=== PATIENT | female | born 1950 | race Two or more races ===

== ENCOUNTER 2020-01-25 21:43 | Inpatient (IN) | payer MEDICARE, MEDICAID ==
[~2020-01-25] VITALS: Ht 160 cm; Wt 55.3 kg
[2020-01-25 22:41] LABS: BASOPHILS % 0.7 % (0.0-2.0); HEMATOCRIT. 38.4 % (36.0-48.0); HEMOGLOBIN. 12.7 g/dL (12.0-16.0); LYMPHOCYTES % 14.7 % (20.0-50.0); MEAN CORPUSCULAR HEMOGLOBIN 32.6 pg (28.0-32.0); MEAN CORPUSCULAR VOLUME 98.7 fL (81.0-99.0); MEAN PLATELET VOLUME 9.4 fl (7.4-10.4); MONOCYTES % 6.7 % (2.0-8.0); NEUTROPHILS % 73.9 % (40.0-76.0); PLATELET 168 x1000/uL (130-400); RED BLOOD CELL COUNT 3.89 mill/uL (4.2-5.4); RED CELL DISTRIBUTION WIDTH 19.4 % (11.6-14.6)
[2020-01-25 22:46] LABS: CHLORIDE 96 mEq/L (98-107)
[2020-01-25 22:48] LABS: PROTHROMBIN TIME 10.9 sec (9.6-11.0)
[2020-01-25] MEDS ORDERED: ACETAMINOPHEN 325MG TABLET PO ONE ×2 (23:15→23:45)
[2020-01-25] MEDS ORDERED: MECLIZINE 25MG TABLET PO ONE (23:15)
[2020-01-25 23:18] LABS: PARTIAL THROMBOPLASTIN TIME 21.5 sec (23.4-31.0)
[2020-01-26] VITALS (16 sets, daily range): BP systolic 80–164; BP diastolic 40–67
[2020-01-26] MEDS ORDERED: DEXTROSE 50% WATER 50ML SYRINGE IV ONE
[2020-01-26] MEDS ORDERED: INSULIN REGULAR (HUMULIN R) UD 100 UNITS/ML SYR IV ONE
[2020-01-26] MEDS ORDERED: VANCOMYCIN 1 G PREMIX 200 ML IV SCH
[2020-01-26] MEDS ORDERED: CALCIUM GLUCONATE 100MG/ML 10ML VIAL IV ONE
[2020-01-26] MEDS ORDERED: PIPERACILLIN/TAZ 2.25G PREMIX 50 ML IV ONE
[2020-01-26] MEDS ORDERED: LORAZEPAM 2MG/ML CPJ IV PRN (00:45)
[2020-01-26] MEDS ORDERED: INSULIN REGULAR (HUMULIN R) 300UNITS/3ML IV SCH (00:45)
[2020-01-26] MEDS ORDERED: ACETAMINOPHEN 325MG TABLET PO PRN (00:45)
[2020-01-26] MEDS ORDERED: IPRATROPIUM/ALBUTEROL 0.5-3(2.5)MG/3ML NEB HHN PRN (00:45)
[2020-01-26] MEDS ORDERED: ONDANSETRON HCL 4MG/2ML INJ IV PRN (00:45)
[2020-01-26] MEDS ORDERED: DOCUSATE SODIUM 100MG CAPSULE PO PRN (00:45)
[2020-01-26] MEDS ORDERED: HYDRALAZINE 20MG/ML VIAL IV PRN (00:45)
[2020-01-26] MEDS ORDERED: DEXTROSE 50% WATER 50ML SYRINGE IV PRN (00:45)
[2020-01-26] MEDS ORDERED: MAGNESIUM/ALUMINUM HYDROXIDE/SIMETHICONE 30ML UDC PO PRN (00:45)
[2020-01-26] MEDS ORDERED: DIPHENHYDRAMINE 50MG/ML VIAL IV PRN (00:45)
[2020-01-26] MEDS ORDERED: GUAIFENESIN 200MG/10ML SUGAR FREE UDC PO PRN (00:45)
[2020-01-26] MEDS ORDERED: MORPHINE SULFATE 2 MG/ML CPJ (NOT FOR IM USE) IV PRN (00:45)
[2020-01-26] MEDS ORDERED: CALCIUM GLUCONATE 1,000 MG in DEXT 5% WATER 100 ML IV SCH (01:00)
[2020-01-26 05:02] LABS: CREATINE KINASE 39 IU/L (26-192)
[2020-01-26 05:04] LABS: CREATINE KINASE MB FRACTION < 1.0 ng/mL (0.5-3.6)
[2020-01-26] MEDS: SODIUM CHLORIDE 0.9% INJ 3ML FLUSH IVF SCH ×3 (06:27→21:16)
[2020-01-26] MEDS: BLOOD SUGAR DIAGNOSTIC STRIP TEST SCH ×4 (06:30→21:07)
[2020-01-26] MEDS: INSULIN LISPRO 100 UNITS/ML SUBCUT SCH ×4 (07:20→21:15)
[2020-01-26] MEDS ORDERED: NA PHOS,M-B/NA PHOS,DI-BA ENEMA 118ML PR PRN (09:00)
[2020-01-26] MEDS: ENOXAPARIN 30MG/0.3ML SYR SUBCUT SCH (09:13)
[2020-01-26 10:12] LABS: HEMATOCRIT 35.1 % (36.0-48.0); HEMOGLOBIN 11.9 g/dL (12.0-16.0); MEAN CORPUSCULAR HEMOGLOBIN 32.8 pg (28.0-32.0); MEAN CORPUSCULAR VOLUME 96.8 fL (81.0-99.0); PLATELET 141 x1000/uL (130-400); RED BLOOD CELL COUNT 3.62 mill/uL (4.2-5.4)
[2020-01-26 10:23] LABS: CHLORIDE 96 mEq/L (98-107)
[2020-01-26] MEDS ORDERED: ATOR40TA70 PO (12:09)
[2020-01-26] MEDS ORDERED: GABA-529 PO (12:09)
[2020-01-26] MEDS ORDERED: NIFE20CA PO (12:09)
[2020-01-26] MEDS ORDERED: CLOP75TA33 PO (12:09)
[2020-01-26] MEDS ORDERED: ASCO-339 PO (12:09)
[2020-01-26] MEDS ORDERED: LABE300T3 PO (12:09)
[2020-01-26] MEDS: HYDROCODONE/ACETAMINOPHEN 10/325MG TABLET PO PRN (12:57)
[2020-01-26 16:57] LABS: CREATINE KINASE 21 IU/L (26-192)
[2020-01-26 16:58] LABS: CREATINE KINASE MB FRACTION < 1.0 ng/mL (0.5-3.6)
[2020-01-26] MEDS: SEVELAMER CARBONATE 800 MG TABLET PO SCH (17:17)
[2020-01-27] VITALS (11 sets, daily range): BP systolic 101–190; BP diastolic 39–70
[2020-01-27] MEDS: HYDROCODONE/ACETAMINOPHEN 10/325MG TABLET PO PRN (04:05)
[2020-01-27] MEDS: CLONIDINE 0.1MG TABLET PO PRN (05:21)
[2020-01-27] MEDS: BLOOD SUGAR DIAGNOSTIC STRIP TEST SCH ×4 (06:34→21:00)
[2020-01-27] MEDS: SEVELAMER CARBONATE 800 MG TABLET PO SCH ×3 (06:37→17:52)
[2020-01-27] MEDS: SODIUM CHLORIDE 0.9% INJ 3ML FLUSH IVF SCH ×3 (06:37→22:52)
[2020-01-27] MEDS: INSULIN LISPRO 100 UNITS/ML SUBCUT SCH ×4 (07:20→21:00)
[2020-01-27 08:07] LABS: CHLORIDE 102 mEq/L (98-107)
[2020-01-27 08:14] LABS: BASOPHILS % 0.7 % (0.0-2.0); EOSINOPHILS % 9.9 % (0.0-5.0); HEMATOCRIT. 31.3 % (36.0-48.0); HEMOGLOBIN. 10.6 g/dL (12.0-16.0); LYMPHOCYTES % 23.6 % (20.0-50.0); MEAN CORPUSCULAR HEMOGLOBIN 33.2 pg (28.0-32.0); MEAN CORPUSCULAR VOLUME 97.8 fL (81.0-99.0); MEAN PLATELET VOLUME 9.2 fl (7.4-10.4); MONOCYTES % 8.5 % (2.0-8.0); NEUTROPHILS % 57.3 % (40.0-76.0); PLATELET 132 x1000/uL (130-400); RED CELL DISTRIBUTION WIDTH 19.1 % (11.6-14.6)
[2020-01-27 08:15] LABS: LDL CHOLESTEROL 57 mg/dL (5-100)
[2020-01-27 08:16] LABS: HDL CHOLESTEROL 54 mg/dL (40-59)
[2020-01-27 08:17] LABS: T4 FREE 1.01 ng/dL (0.76-1.46)
[2020-01-27] MEDS: CLOPIDOGREL 75MG TABLET PO SCH (09:49)
[2020-01-27] MEDS: ENOXAPARIN 30MG/0.3ML SYR SUBCUT SCH (09:49)
[2020-01-27] MEDS: HYDRALAZINE HCL 25MG TABLET PO SCH (22:52)
[2020-01-28] VITALS (12 sets, daily range): BP systolic 0–185; BP diastolic 47–70
[2020-01-28 06:37] LABS: BASOPHILS % 0.6 % (0.0-2.0); EOSINOPHILS % 9.1 % (0.0-5.0); HEMATOCRIT. 31.9 % (36.0-48.0); HEMOGLOBIN. 10.6 g/dL (12.0-16.0); LYMPHOCYTES % 26.2 % (20.0-50.0); MEAN CORPUSCULAR HEMOGLOBIN 32.5 pg (28.0-32.0); MEAN CORPUSCULAR VOLUME 97.6 fL (81.0-99.0); MEAN PLATELET VOLUME 8.9 fl (7.4-10.4); MONOCYTES % 8.4 % (2.0-8.0); NEUTROPHILS % 55.7 % (40.0-76.0); PLATELET 137 x1000/uL (130-400); RED BLOOD CELL COUNT 3.27 mill/uL (4.2-5.4); RED CELL DISTRIBUTION WIDTH 18.2 % (11.6-14.6)
[2020-01-28] MEDS: SODIUM CHLORIDE 0.9% INJ 3ML FLUSH IVF SCH ×2 (07:05→13:54)
[2020-01-28] MEDS: BLOOD SUGAR DIAGNOSTIC STRIP TEST SCH ×3 (07:05→16:29)
[2020-01-28] MEDS: INSULIN LISPRO 100 UNITS/ML SUBCUT SCH ×3 (07:20→16:29)
[2020-01-28] MEDS: SEVELAMER CARBONATE 800 MG TABLET PO SCH ×3 (08:54→16:32)
[2020-01-28] MEDS: CLOPIDOGREL 75MG TABLET PO SCH (08:55)
[2020-01-28] MEDS: HYDRALAZINE HCL 25MG TABLET PO SCH (08:55)
[2020-01-28] MEDS: ENOXAPARIN 30MG/0.3ML SYR SUBCUT SCH (08:55)
[2020-01-28] MEDS: CLONIDINE 0.1MG TABLET PO PRN (12:37)
== END 2020-01-28 21:12 | disposition home or self-care (01) | DRG 314 ==
LOC: ER 21:43 → 3WST 01-26 01:15 → EDBEDREQSVC 01-26 01:19 → EDBEDREQTM 01-26 01:19 → EDBEDREQDT 01-26 01:19 → EDBEDREQ 01-26 01:19 → ENRESERV 01-26 04:42
PROVIDERS: ADMIT Internal Medicine; ATTEND Internal Medicine
PROC: 5A1D70Z Performance of Urinary Filtration, Intermittent, Less than 6 Hours Per Day (ICD-10-PCS; principal; 2020-01-26)
PROC: 5A1D70Z Performance of Urinary Filtration, Intermittent, Less than 6 Hours Per Day (ICD-10-PCS; 2020-01-28)
DX: I95.9 Hypotension, unspecified (principal); N18.6 End stage renal disease; E87.1 Hypo-osmolality and hyponatremia; E87.2 Acidosis; I13.11 Hypertensive heart and chronic kidney disease without heart failure, with stage 5 chronic kidney disease, or end stage renal disease; G90.8 Other disorders of autonomic nervous system; E87.5 Hyperkalemia; D64.9 Anemia, unspecified; E66.9 Obesity, unspecified; E78.5 Hyperlipidemia, unspecified; I25.10 Atherosclerotic heart disease of native coronary artery without angina pectoris; E11.22 Type 2 diabetes mellitus with diabetic chronic kidney disease; Z95.1 Presence of aortocoronary bypass graft; Z79.02 Long term (current) use of antithrombotics/antiplatelets; Z99.2 Dependence on renal dialysis; Z79.899 Other long term (current) drug therapy; Z86.73 Personal history of transient ischemic attack (TIA), and cerebral infarction without residual deficits; Z68.21 Body mass index [BMI] 21.0-21.9, adult
CPT/HCPCS: 36415; 70551; 71045; 73502; 80048; 80053; 80061; 82550; 82553; 82962; 83605; 83880; 84439; 84443; 84484; 85025; 85027; 93005; 93306; 93880; 93970; 99291; J0360; J0610; J1650; J1815; J2270; J2543; J3370; J7060; J8597